=== PATIENT | female | born 1990 | race Two or more races ===

== ENCOUNTER 2018-09-03 11:51 | Observation (INO) | payer OTHER ==
--- NOTE | 2018-09-03 13:08 | PDGENHP ---
History and Physical History and Physical: CARE: [facility] HPI: Patient is a 28 yo G 2 P 1 at 38.2 weeks ega who presents to L&D with complaints of leaking fluid for the last week. She states she has noticed small amts of leaking fluid from time to time over the last week, but not consistent. She denies regular painful contractions, vag bleeding. Baby is active. Her BP while in labor and delivery today was 120-130s/80s - one diastolic over 90. Denies headache, increased edema, visual changes or epigastric pain. EDC: 09/15/18 which is based on LMP: 12/09/18 which is known and consistent with Ultrasound at 8 weeks. 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 -Asthma - inhaler, nebulizer PRN -GBS pos Review of Systems: Constitutional: Denies any fever, chills, or fatigue HEENT: denies any visual changes, difficulty swallowing, hearing loss Cardiovascular: Denies any chest pain, palpitations, leg swelling Respiratory: denies any cough, wheezing, or shortness of breathe GI: Denies any nausea, vomiting, diarrhea, constipation : denies any dysuria, urgency, frequency, vaginal bleeding Musculoskeletal: denies any muscle or bone pain Skin: denies any rashes Neuro: denies any headache, seizures, lightheadedness, dizziness, or loss of consciousness Psychiatric: denies any depression, anxiety, or SI/HI thoughts HISTORY: Previous OB history: 2010 Past medical history: asthma, HSV type II Past surgical history: none Social history: denies tobacco, alcohol and recreational drugs Medications: PNV Allergies (list reaction): NKDA LABS: Rh: O pos ABS: Neg Rubella: Immune HbsAg: NR HIV: NR VDRL: NR 1hr: 94 GC: Neg Chlamydia: Neg Pap: Normal GBS: pos PHYSICAL EXAM: Constitutional: WNL, A&Ox3 Skin: pink, warm and dry HEENT: normocephalic atraumatic, supple Heart: RRR, no murmur Chest: CTA-B Abdomen: Soft, nontender, gravid SVE: ft/50/-3 Extremities: sml edema, negative vicki's sign Neuro: grossly normal Psych: normal affect assessment: Reassuring FHTs, baseline 130s +accels, no decels, moderate variability Contractions: toco quiet Assessment: 1) 28 yo G 2 P 1 with IUP@38.2 weeks ega 2) R/O SROM - amnisure neg 3) GBS pos 4) Cat 1 FHR tracing 5) BPs slightly elevated - PE labs WNL Plan: 1) Will discharge home 2) Reviewed labor precautions 3) Reviewed pre eclampsia precautions 4) Will f/u next Wednesday in office
[2018-09-03 14:41] LABS: PLATELET COUNT 222 10^3/uL (150-400)
== END 2018-09-03 15:11 | disposition home or self-care (01) ==
LOC: FLD 11:51
PROVIDERS: ADMIT Advanced Practice Midwife; ATTEND Advanced Practice Midwife
DX: O26.893 Other specified pregnancy related conditions, third trimester (principal); M54.5 Low back pain; Z3A.38 38 weeks gestation of pregnancy
CPT/HCPCS: G0378 ×2

== ENCOUNTER 2018-09-14 06:00 | Inpatient (IN) | payer OTHER ==
[2018-09-14] MEDS ORDERED: PENICILLIN G POTASSIUM 5,000,000 UNIT in D5W 150 ML IV ONE (14:48)
[2018-09-14] MEDS ORDERED: OLIVE OIL 118 ML BTL MISC PRN (14:48)
[2018-09-14] MEDS ORDERED: EPSOM SALT 454 GM TP PRN (14:48)
[2018-09-14] MEDS ORDERED: OXYTOCIN/RINGERS LACTATE 1,000 ML IV PRN (14:48)
[2018-09-14] MEDS ORDERED: IBUPROFEN 600 MG TAB PO PRN (14:48)
[2018-09-14] MEDS ORDERED: LR 1,000 ML IV PRN (14:48)
[2018-09-14] MEDS ORDERED: LIDOCAINE 1% 300 MG/30 ML SDV SC PRN (14:48)
[2018-09-14] MEDS ORDERED: MISOPROSTOL 200 MCG TAB PR PRN (14:48)
[2018-09-14] MEDS ORDERED: CALCIUM CARBONATE 500 MG CHEWABLE TAB PO PRN (14:52)
--- NOTE | 2018-09-14 15:13 | PDGENHP ---
History and Physical History and Physical: CARE: [facility] HPI: Patient is a 27 yo G 2 P 1 @ 39.6 weeks that presents to L&D with complaints of elevated blood pressure in office. EDC: 09/15/18 which is based on LMP: 12/09/2017 which is known and consistent with Ultrasound at 8 weeks. Her is complicated by: hx of HSV, suppressive therapy initiated at 36 weeks. asthma - uses inhaler rarely, GBS +. Review of Systems: Constitutional: Denies any fever, chills, or fatigue HEENT: denies any visual changes, difficulty swallowing, hearing loss Cardiovascular: Denies any chest pain, palpitations, leg swelling Respiratory: denies any cough, wheezing, or shortness of breathe GI: Denies any nausea, vomiting, diarrhea, constipation : denies any dysuria, urgency, frequency, vaginal bleeding Musculoskeletal: denies any muscle or bone pain Skin: denies any rashes Neuro: denies any headache, seizures, lightheadedness, dizziness, or loss of consciousness Psychiatric: denies any depression, anxiety, or SI/HI thoughts HISTORY: Previous OB history: , 8#8oz male in 2009. Social history: single, lives with son and partner Zachariah Family history: non-contributory Past medical history: asthma, uses inhaler occasionally; hx of HSV and migraine headaches Past surgical history: none Medications: PNV, B vit, loratidine, Probiotics, ventolin PRN Allergies: NKDA LABS: Rh: O+ ABS: Neg Rubella: lmmune HbsAg: NR HIV: NR VDRL: NR 1hr: 94 GC: Neg Chlamydia: Neg Pap: Normal GBS: positive BMI: (prepreg) 27 PHYSICAL EXAM: Constitutional: WN, A&Ox3 HEENT: normocephalic atraumatic, supple, denies headache or scomata Heart: RRR, no murmur Chest: CTA-B Skin: warm, dry, intact Abdomen: Soft, nontender, gravid SVE: 3-4 cm in office this afternoon Extremities: trace edema, negative homans sign Neuro: grossly normal Psych: normal affect assessment: FHT baseline 135, +accels, no decels, moderate variability Contractions: none Assessment: 1) 27 yo G 2 P 1 with IUP@ 39.6 2) elevated blood pressure in office 3) GBS + 4) Cat 1 FHR tracing Plan: 1) Admit to L&D 2) induction of labor 3) PIH labs pending 4) monitor BP closely 5) anticipate
[2018-09-14 15:23] LABS: PLATELET COUNT 266 10^3/uL (150-400)
[2018-09-14] MEDS ORDERED: LR 500 ML IV PRN (15:45)
[2018-09-14] MEDS ORDERED: OXYTOCIN/RINGERS LACTATE 500 ML IV SCH (16:00)
--- NOTE | 2018-09-14 19:35 | OBPROG ---
Labor Progress Note Assessment/Plan: Assessment: Plan: Subjective/Intrapartum Course: 09/14/18 19:32 no signs of labor, blood pressure stable, PIH labs wnl. Objective: 09/14/18 14:35 09/14/18 14:35 Patient ABO/Rh O POSITIVE 09/14/18 14:35 Uric Acid 5.5 mg/dL (2.5-6.8) 09/14/18 14:35 Total Bilirubin 0.3 mg/dL (0.1-1.4) 09/14/18 14:35 Conjugated Bilirubin 0.3 mg/dL (0.0-0.5) 09/14/18 14:35 Unconjugated Bilirubin 0.0 mg/dL (0.0-1.1) 09/14/18 14:35 AST 26 IU/L (14-46) 09/14/18 14:35 ALT 32 IU/L (9-52) 09/14/18 14:35 Lactate Dehydrogenase 570 IU/L (313-618) 09/14/18 14:35 VSS, Pitocin at 3mu - SVE Dilation (cm): 3 Effacement (%): 75 Station: -2 Membranes: Intact - FHR Assessment Chen FHR (bpm): 130 FHR Pattern Variability: Moderate FHR Category: 1 Oxytocin Orders Assessment - Pre-Induction/Augmentation Assessment Presentation: Vertex Gestational Age: 39 week(s) and 6 day(s) Gestational Age Determined By: Ultrasound, Last Menstral Period Estimated Weight: 4922-7713 Membrane Status: Intact - Heart Rate Pattern Chen FHR Category: 1 FHR Pattern Variability: Moderate FHR Accelerations: Present - Sparrow's Score Dilation: 3-4cm Effacement: 60-70 Station: -2 Cervix: Soft Cervix Position: Mid Sparrow Score Total: 8 - Induction/Augmentation Consent Risks/Benefits of Procedure Reviewed/Pt Agrees to Proceed: Yes ICD10 Worksheet Patient Problems: Problems Problem Status Onset Elevated blood pressure complicating in third trimester, antepartum Acute Term Acute
[2018-09-14] MEDS: PENICILLIN G POTASSIUM 2,500,000 UNIT in D5W 150 ML IV SCH (19:55)
[2018-09-14] MEDS: valACYclovir 500 MG TAB PO SCH (20:47)
[2018-09-14] MEDS ORDERED: AMMONIA AROMATIC 1 EACH AMP IH ONE (22:50)
[2018-09-14] MEDS ORDERED: OLIVE OIL 118 ML BTL ONE (22:50)
[2018-09-14] MEDS ORDERED: LIDOCAINE 1% 300 MG/30 ML SDV ONE (22:50)
[2018-09-14] MEDS ORDERED: TERBUTALINE SULFATE 1 MG/ML VIAL ONE (22:50)
[2018-09-14] MEDS ORDERED: OXYTOCIN 10 UNIT/ML VIAL ONE (22:51)
[2018-09-14] MEDS ORDERED: MISOPROSTOL 200 MCG TAB ONE (22:51)
--- NOTE | 2018-09-15 00:29 | OBPROG ---
Labor Progress Note Assessment/Plan: Assessment: Plan: Subjective/Intrapartum Course: 09/14/18 19:32 no signs of labor, blood pressure stable, PIH labs wnl. 09/15/18 00:29 blood pressure stable, no regular contractions, pt feeling tired requesting break at this time. Plan to re-start pitocin at 5 AM. Objective: 09/14/18 14:35 09/14/18 14:35 Patient ABO/Rh O POSITIVE 09/14/18 14:35 Uric Acid 5.5 mg/dL (2.5-6.8) 09/14/18 14:35 Total Bilirubin 0.3 mg/dL (0.1-1.4) 09/14/18 14:35 Conjugated Bilirubin 0.3 mg/dL (0.0-0.5) 09/14/18 14:35 Unconjugated Bilirubin 0.0 mg/dL (0.0-1.1) 09/14/18 14:35 AST 26 IU/L (14-46) 09/14/18 14:35 ALT 32 IU/L (9-52) 09/14/18 14:35 Lactate Dehydrogenase 570 IU/L (313-618) 09/14/18 14:35 - SVE Dilation (cm): 3 Effacement (%): 75 Station: -2 Membranes: Intact - Contraction Pattern Assessment Current Contraction Pattern: Irregular - Physical Exam Estimated Weight: 9341-5455 Oxytocin Orders Assessment - Pre-Induction/Augmentation Assessment Presentation: Vertex Gestational Age: 39 week(s) and 6 day(s) Estimated Weight: 7102-7468 ICD10 Worksheet Patient Problems: Problems Problem Status Onset Elevated blood pressure complicating in third trimester, antepartum Acute Term Acute
[2018-09-15] MEDS: PENICILLIN G POTASSIUM 2,500,000 UNIT in D5W 150 ML IV SCH ×2 (07:45→12:02)
[2018-09-15] MEDS ORDERED: PENICILLIN G POTASSIUM 5,000,000 UNIT in D5W 150 ML IV ONE (07:45)
[2018-09-15] MEDS: valACYclovir 500 MG TAB PO SCH ×2 (08:50→21:35)
[2018-09-15] MEDS ORDERED: ONDANSETRON 4 MG/2 ML VIAL IVP PRN (13:59)
[2018-09-15] MEDS ORDERED: METOCLOPRAMIDE 10 MG/2 ML VIAL IVP PRN (13:59)
[2018-09-15] MEDS ORDERED: NALOXONE HCL 0.4 MG/ML INJ IVP PRN (13:59)
--- NOTE | 2018-09-15 13:59 | PDANEPAE ---
ANE History of Present Illness labor, desires DULCE ANE Past Medical History - Pulmonary History Hx Sleep Apnea: No ANE Review of Systems Review of Systems: ANE Patient History - Allergies Allergies/Adverse Reactions: No Known Allergies Allergy (Unverified 09/03/18 12:19) - Home Medications Home Medications: Amox Tr/K Clav (Augmentin) [Augmentin 500/125 MG TAB (*)] 09/14/18 [Last Taken 09/13/18] Loratadine 09/14/18 [Last Taken 09/13/18] Vit27&Calcium/Iron/FA [] 09/14/18 [Last Taken 09/13/18] - Smoking Hx Smoking Status: Former smoker ANE Labs/Vital Signs - Labs Result Diagrams: 09/14/18 14:35 09/14/18 14:35 - Vital Signs Height: 167.64 cm Weight: 97.976 kg ANE Physical Exam - Airway Neck exam: FROM Mallampati Score: Class 3 Mouth exam: normal dental/mouth exam - Pulmonary Pulmonary: no respiratory distress, no rales or rhonchi - Cardiovascular Cardiovascular: regular rate and rhythym, no murmur, rub, or gallop - ASA Status ASA Status: III ANE Anesthesia Plan Anesthesia Plan: epidural (DULCE desired for labor for presumed of term )
[2018-09-15] MEDS ORDERED: LR 500 ML IV SCH (14:00)
[2018-09-15] MEDS ORDERED: fentaNYL 2MCG/ML/BUP 0.1% RTU 100 ML EP SCH (14:00)
[2018-09-15] MEDS ORDERED: fentaNYL 100 MCG/2 ML INJ ONE (14:35)
--- NOTE | 2018-09-15 15:26 | OBPROG ---
Labor Progress Note Assessment/Plan: Assessment: 28yo with IUP@ 40-0wks IOL GBS+ cat 1 FHR desires BTL Plan: cont pitocin IOL AROM when able anticipate Pain management PRN 09/15/18 0930 Subjective/Intrapartum Course: 09/14/18 19:32 no signs of labor, blood pressure stable, PIH labs wnl. 09/15/18 00:29 blood pressure stable, no regular contractions, pt feeling tired requesting break at this time. Plan to re-start pitocin at 5 AM. 09/15/18 09:30 Pt doing well, denies any pain. she is walking. She reports moderate pain with contractions. She is ambulating in harmon Objective: 09/14/18 14:35 09/14/18 14:35 Patient ABO/Rh O POSITIVE 09/14/18 14:35 Uric Acid 5.5 mg/dL (2.5-6.8) 09/14/18 14:35 Total Bilirubin 0.3 mg/dL (0.1-1.4) 09/14/18 14:35 Conjugated Bilirubin 0.3 mg/dL (0.0-0.5) 09/14/18 14:35 Unconjugated Bilirubin 0.0 mg/dL (0.0-1.1) 09/14/18 14:35 AST 26 IU/L (14-46) 09/14/18 14:35 ALT 32 IU/L (9-52) 09/14/18 14:35 Lactate Dehydrogenase 570 IU/L (313-618) 09/14/18 14:35 - SVE Membranes: Intact - Contraction Pattern Assessment Current Contraction Pattern: Irregular - FHR Assessment Chen FHR (bpm): 135 FHR Pattern Variability: Moderate FHR Category: 1 - Physical Exam Estimated Weight: 4757-3006 Oxytocin Orders Assessment - Pre-Induction/Augmentation Assessment Presentation: Vertex Gestational Age: 39 week(s) and 6 day(s) Estimated Weight: 4934-7376 ICD10 Worksheet Patient Problems: Problems Problem Status Onset Elevated blood pressure complicating in third trimester, antepartum Acute Term Acute
[2018-09-15] MEDS ORDERED: fentaNYL 100 MCG/2 ML INJ IVP PRN (15:28)
--- NOTE | 2018-09-15 15:28 | OBPROG ---
Labor Progress Note Assessment/Plan: Assessment: 28yo with IUP@ 40-0wks IOL GBS+ cat 2 FHR desires BTL AROM (attempt) Plan: cont pitocin IOL Pain management PRN reassess 2hr/PRN anticipate 09/15/18 12:25 09/15/18 15:28 Subjective/Intrapartum Course: 09/14/18 19:32 no signs of labor, blood pressure stable, PIH labs wnl. 09/15/18 00:29 blood pressure stable, no regular contractions, pt feeling tired requesting break at this time. Plan to re-start pitocin at 5 AM. 09/15/18 09:30 Pt doing well, denies any pain. she is walking. She reports moderate pain with contractions. She is ambulating in harmon Objective: 09/14/18 14:35 09/14/18 14:35 Patient ABO/Rh O POSITIVE 09/14/18 14:35 Uric Acid 5.5 mg/dL (2.5-6.8) 09/14/18 14:35 Total Bilirubin 0.3 mg/dL (0.1-1.4) 09/14/18 14:35 Conjugated Bilirubin 0.3 mg/dL (0.0-0.5) 09/14/18 14:35 Unconjugated Bilirubin 0.0 mg/dL (0.0-1.1) 09/14/18 14:35 AST 26 IU/L (14-46) 09/14/18 14:35 ALT 32 IU/L (9-52) 09/14/18 14:35 Lactate Dehydrogenase 570 IU/L (313-618) 09/14/18 14:35 - SVE Dilation (cm): 3 Effacement (%): 50 Station: -2 Membranes: AROM (no fluid) - Contraction Pattern Assessment Current Contraction Pattern: Irregular - FHR Assessment Chen FHR (bpm): 135 FHR Pattern Variability: Moderate FHR Category: 2 - Procedures Non-surgical Procedures: Amniotomy - Physical Exam Estimated Weight: 6126-9400 Oxytocin Orders Assessment - Pre-Induction/Augmentation Assessment Presentation: Vertex Gestational Age: 39 week(s) and 6 day(s) Estimated Weight: 4492-3545 ICD10 Worksheet Patient Problems: Problems Problem Status Onset Elevated blood pressure complicating in third trimester, antepartum Acute Term Acute
--- NOTE | 2018-09-15 15:30 | OBDEL ---
Info Type: Vaginal Presentation at Delivery: Vertex L&D Analgesia/Anesthesia Type: None GBS+: Yes (treated with penicillin) Intrapartum Medications: Generic Name Dose Route Start Last Admin Trade Name Freq PRN Reason Stop Dose Admin Calcium Carbonate 500 mg 09/14/18 14:52 09/14/18 15:09 Tums PO 03/13/19 14:51 500 mg TID PRN Administration Indigestion Oxytocin/Lactated Ringer's 500 mls @ 0 mls/hr 09/14/18 16:00 09/15/18 05:44 Pitocin 30 Units/Lr (Premix) IV 03/13/19 15:59 500 mls CONT JUSTIN Administration Protocol Per Protocol Penicillin G Potassium 2,500, 155 mls @ 155 mls/hr 09/15/18 11:30 09/15/18 12 :02 000 unit/ Dextrose IV 10/15/18 11:29 155 mls Q4H JUSTIN Administration Protocol Valacyclovir HCl 500 mg 09/14/18 21:00 09/15/18 08:50 Valtrex PO 10/14/18 20:59 500 mg Q12HRS JUSTIN Administration Discontinued Medications Generic Name Dose Route Start Last Admin Trade Name Mary PRN Reason Stop Dose Admin Lactated Ringer's 1,000 mls @ 0 mls/hr 09/14/18 14:48 09/15/18 06:44 Lr IV 09/15/18 14:47 1,000 mls PRN PRN Administration SEE PROTOCOL CONDITIONS Protocol Per Protocol Penicillin G Potassium 5,000, 160 mls @ 160 mls/hr 09/14/18 14:48 09/14/18 16 :31 000 unit/ Dextrose IV 09/14/18 15:47 Not Given ONCE ONE Protocol Penicillin G Potassium 2,500, 155 mls @ 155 mls/hr 09/14/18 18:50 09/15/18 07 :45 000 unit/ Dextrose IV 10/14/18 18:49 Not Given Q4H JUSTIN Protocol Penicillin G Potassium 5,000, 160 mls @ 160 mls/hr 09/15/18 07:45 09/15/18 07 :46 000 unit/ Dextrose IV 09/15/18 08:44 160 mls ONCE ONE Administration Protocol - Hospital Course Intrapartum: 09/14/18 19:32 no signs of labor, blood pressure stable, PIH labs wnl. 09/15/18 00:29 blood pressure stable, no regular contractions, pt feeling tired requesting break at this time. Plan to re-start pitocin at 5 AM. 09/15/18 09:30 Pt doing well, denies any pain. she is walking. She reports moderate pain with contractions. She is ambulating in harmon Vaginal Delivery - Delivery Provider Delivery Physician/CNM: Reanna Macias - Labor and Delivery Onset of Contractions Date: 09/15/18 Onset of Contractions Time: 13:16 Onset of Contractions Type: Induced Rupture of Membranes Date: 09/15/18 Rupture of Membranes Time: 12:13 Rupture of Membranes Type: Artificial Amniotic Fluid Color: Clear Dilation Complete Date: 09/15/18 Dilation Complete Time: 14:10 Placenta Delivery Date: 09/15/18 Placenta Delivery Time: 15:05 Total Hours of Labor: 1 Non-surgical Procedures: Amniotomy Data INGA: 09/15/18 Gestational Age: 40 week(s) and 0 day(s) Chen Delivery Date: 09/15/18 Delivery Time: 14:17 Sex of : Male Weight (gm): 2285 g Score (1 Min): 8 Score (5 Min): 9 ICD10 Worksheet Patient Problems: Problems Problem Status Onset Elevated blood pressure complicating in third trimester, antepartum Acute Retained placenta Acute Term Acute - ICD10 Problem Qualifiers (1) Retained placenta
[2018-09-15] MEDS ORDERED: CEFAZOLIN 2 GM/DEXTROSE/100 ML BAG IV ONE (15:58)
[2018-09-15] MEDS ORDERED: ceFAZolin 2 GM/DEXTROSE 100 ML IV ONE (16:15)
[2018-09-15] MEDS ORDERED: DOCUSATE SODIUM 100 MG CAP PO PRN (18:22)
[2018-09-15] MEDS ORDERED: SIMETHICONE 80 MG TAB CHEW PO PRN (18:22)
[2018-09-15] MEDS ORDERED: HYDROCORTISONE 0.5% CREAM TP PRN (18:22)
--- NOTE | 2018-09-15 19:17 | SOAPPROG ---
SOAP Progress Note Assessment/Plan: post placenta was adherent to uterus cord evulsed and after manual removal attempt x2 - Candice Kaiser was notified to assist at BS. Candice Kaiser was able to manually remove part of placenta and used curettage to ensure no RPOC. BSUS done- which confirmed thin stripe. bleeding normal/pt stable and tolerated procedure well. Objective: Vital Signs Temp Pulse Resp BP Pulse Ox 36.3 C 134 H 16 117/75 94 09/15/18 18:02 09/15/18 18:02 09/15/18 18:02 09/15/18 18:02 09/15/18 18:02 Laboratory Results 09/14/18 14:35 09/14/18 14:35 09/14/18 09/15/18 09/16/18 05:59 05:59 05:59 Intake Total 3000 Output Total 800 Balance 2200 ICD10 Worksheet Patient Problems: Problems Problem Status Onset Elevated blood pressure complicating in third trimester, antepartum Acute Retained placenta Acute Term Acute - ICD10 Problem Qualifiers (1) Retained placenta
[2018-09-15] MEDS: IBUPROFEN 600 MG TAB PO PRN (21:34)
[2018-09-16] MEDS ORDERED: LR 1,000 ML IV SCH
[2018-09-16] MEDS: PENICILLIN G POTASSIUM 2,500,000 UNIT in D5W 150 ML IV SCH (02:10)
[2018-09-16] MEDS: IBUPROFEN 600 MG TAB PO PRN ×3 (04:08→22:19)
--- NOTE | 2018-09-16 07:57 | PDHPUP ---
History & Physical Update H&P update statement: This history and physical update is based on an assessment of the patient which was completed after admission or registration (within 24 hours), but prior to the surgery/procedure. Pt had and with MALU Macias, yesterday at 1417, c/b retained placenta, with bedside curettage performed by Dr. Kaiser. Is still very much desiring permanent sterilization. Reviewed morbid scenario - partner and both children get killed in an accident in a year. She is only 28, she may want to have another family in her early 30s. She very clearly states that despite hearing this - she never wants to be again, no matter the circumstances. She is fully aware that removing her tubes is not a reversible procedure. She does desire tubal removal to decrease the risk of ovarian cancer. No known family hx of ovarian cancer. Is working on . Ambulating and voiding without difficulty. Hungry as NPO since midnight. PMH: HSV - has been on suppressive acyclovir past month. asthma - has not used an inhaler since early migraines PSH: none Meds: acyclovir, was on PCN in labor for GBS+, pp - ibuprofen at 0400 this morning - only dose this admission. All: NKDA Soc: partner and FOC here with her, though she does not classify it as a keno terminal operator relationship. Famhx: no known hx of ovarian cancer O: 09/16/18 02:50 09/14/18 14:35 Patient ABO/Rh O POSITIVE 09/14/18 14:35 Uric Acid 5.5 mg/dL (2.5-6.8) 09/14/18 14:35 Total Bilirubin 0.3 mg/dL (0.1-1.4) 09/14/18 14:35 Conjugated Bilirubin 0.3 mg/dL (0.0-0.5) 09/14/18 14:35 Unconjugated Bilirubin 0.0 mg/dL (0.0-1.1) 09/14/18 14:35 AST 26 IU/L (14-46) 09/14/18 14:35 ALT 32 IU/L (9-52) 09/14/18 14:35 Lactate Dehydrogenase 570 IU/L (313-618) 09/14/18 14:35 Temp Pulse Resp BP Pulse Ox 36.6 C 104 H 16 101/66 94 09/15/18 21:00 09/15/18 21:00 09/15/18 21:00 09/15/18 21:00 09/15/18 21:00 Temp Pulse Resp BP Pulse Ox 36.7 C 100 18 120/75 95 09/16/18 08:28 09/16/18 08:28 09/16/18 08:28 09/16/18 08:28 09/16/18 08:28 gen -pleasant, NAD abd - soft, obese, fundus firm u-1 ext - traced edema, no calf tenderness A/P:28 GP2 PPD#1 s/p - in setting of IOL for elevated BPs at 39w6d, delivered at 40 wk, unmedicated - desires sterilization during this hospitalization 1) Anemia at 27.1 - currently asymptomatic. 2) Written informed consent obtained - reviewed regret factors: < age 29 (pt is 28), not in a residential monogamous relationship (pt does not classify this relationship as a keno terminal operator monogmous relationship), no children. She is aware that she has one factor for increased risk of regret. 3) Discussed my goal is to perform sterilization procedure, with secondary goal of onco reduction with tubal removal. Pt's BMI is 34.9 - may be technically challenging to remove both tubes in entirety - discussed my goal would be to remove both tubes, but if unable to remove distal portion, would at least attempt to remove a segment of each tube. Jaylene Fox MD, F[facility]OG [facility] H&P update: no change in patient's condition since H&P completed, changes noted (see above)
--- NOTE | 2018-09-16 08:42 | PDANEPAE ---
ANE History of Present Illness desires sterilization ANE Past Medical History - Cardiovascular History Hx Hypertension: No Hx Arrhythmias: No Hx Chest Pain: No Hx Coronary Artery / Peripheral Vascular Disease: No Hx CHF / Valvular Disease: No Hx Palpitations: No - Pulmonary History Hx COPD: No Hx Asthma/Reactive Airway Disease: Yes Hx Recent Upper Respiratory Infection: No Hx Oxygen in Use at Home: No Hx Sleep Apnea: No - Neurologic History Hx Cerebrovascular Accident: No Hx Seizures: No Hx Dementia: No - Endocrine History Hx Diabetes: No Hypothyroid: No Hyperthyroid: No Obesity: mild - Renal History Hx Renal Disorders: No - Liver History Hx Hepatic Disorders: No - Neurological & Psychiatric Hx Hx Neurological and Psychiatric Disorders: No - Cancer History Hx Cancer: No - Congenital Disorder History Hx Congenital Disorders: No - GI History GERD: no Hx Gastrointestinal Disorders: No ANE Review of Systems Review of systems is: negative Review of Systems: ANE Patient History - Allergies Allergies/Adverse Reactions: No Known Allergies Allergy (Unverified 09/03/18 12:19) - Home Medications Home medications: home medication list seen and reviewed Home Medications: Amox Tr/K Clav (Augmentin) [Augmentin 500/125 MG TAB (*)] 09/14/18 [Last Taken 09/13/18] Loratadine 09/14/18 [Last Taken 09/13/18] Vit27&Calcium/Iron/FA [] 09/14/18 [Last Taken 09/13/18] - Anes Hx Anes Hx: no prior problems - Smoking Hx Smoking Status: Former smoker - Alcohol Use Alcohol Use: None - Family Anes Hx Family Anes Hx: none ANE Labs/Vital Signs - Labs Result Diagrams: 09/16/18 02:50 09/14/18 14:35 - Vital Signs Blood Pressure: 120/75 Heart Rate: 100 Respiratory Rate: 18 O2 Sat (%): 95 Height: 167.64 cm Weight: 97.976 kg ANE Physical Exam - Airway Neck exam: FROM Mallampati Score: Class 2 Mouth exam: normal dental/mouth exam - Pulmonary Pulmonary: no respiratory distress, clear to auscultation - Cardiovascular Cardiovascular: regular rate and rhythym, no murmur, rub, or gallop - ASA Status ASA Status: II ANE Anesthesia Plan Anesthesia Plan: general endotracheal anesthesia, spinal
[2018-09-16] MEDS ORDERED: morphINE PF 5 MG/10 ML INJ ONE (08:52)
--- NOTE | 2018-09-16 09:20 | POSTANESTH ---
Post Anesthetic Evaluation Cardiovascular Status: Normal, Stable Respiratory Status: Normal, Stable Level of Consciousness/Mental Status: Can Participate in Eval Pain Control: Adequate, Prn Tx Ordered Nausea/Vomiting Control: Adequate, Prn Tx Ordered Complications Possibly Related to Anesthesia: None Noted
[2018-09-16] MEDS ORDERED: LIDO/EPI 2% **for epidural** 20 ML SDV ONE (09:25)
[2018-09-16] MEDS ORDERED: PHENYLEPHRINE HCL 100 MCG/ML SYR ONE (09:31)
[2018-09-16] MEDS ORDERED: ONDANSETRON 4 MG/2 ML VIAL IVP PRN ×2 (09:35→09:38)
[2018-09-16] MEDS ORDERED: NALOXONE HCL 0.4 MG/ML INJ IVP PRN (09:35)
[2018-09-16] MEDS ORDERED: MEPERIDINE 25 MG/0.5 ML AMP IVP PRN (09:38)
[2018-09-16] MEDS ORDERED: fentaNYL 100 MCG/2 ML INJ IVP PRN (09:38)
[2018-09-16] MEDS ORDERED: PHENYLEPHRINE HCL 100 MCG/ML SYR IVP PRN (09:38)
[2018-09-16] MEDS ORDERED: ePHEDrine SULFATE 25 MG/5 ML SYR ONE (09:51)
--- NOTE | 2018-09-16 10:23 | POSTOPPROG ---
Post Op Note Date of Operation: 09/16/18 Surgeon: Jaylene Fox Tape Duplicator: Tia Lomas, RN Anesthesiologist: Alec Freeman MD Anesthesia: Spinal (with Duramorph) Pre-op Diagnosis: undesired fertility Post-op Diagnosis: same Indication: 28 s/p < 24 hr ago, desires permanent sterilization Procedure: tubal ligation through mini-laparotomy Findings: Normal appearing uterine fundus, bilateral tubes and ovaries Inf/Abcess present in the surg proc area at time of surgery?: No EBL: Minimal Total fluids administered: 800 ml LR Complications: none Specimen(s): bilateral Fallopian tubes
--- NOTE | 2018-09-16 11:38 | GOP ---
[f rep st] OPERATIVE REPORT DATE OF OPERATION: 09/16/2018 SURGEON: Jaylene Fox MD JUNIOR PHP DEVELOPER: Tia Lomas RN. ANESTHESIA: Spinal with Duramorph. ANESTHESIOLOGIST: Alec Freeman MD. PREOPERATIVE DIAGNOSIS: Undesired fertility. POSTOPERATIVE DIAGNOSIS: Undesired fertility. PROCEDURE PERFORMED: tubal ligation through a mini-laparotomy. FINDINGS: Normal-appearing uterine fundus, bilateral tubes and ovaries. SPECIMENS: Bilateral fallopian tubes. ESTIMATED BLOOD LOSS: 20 mL. INDICATIONS: 28-year-old 2, para 2 female status post spontaneous vaginal delivery at term less than 24 hours ago, who desires permanent sterilization. She was counseled during the by Dr. Pruett and maintains her desire to have permanent sterilization. She has received her care with the [facility]. Her hematocrit this morning was 27.1. DESCRIPTION OF PROCEDURE: Written informed consent was obtained from the patient as the history and physical update was done this morning prior to the procedure. The patient was then taken to the operating room where Dr. Freeman performed a spinal anesthetic. She was then placed in the dorsal supine position. Her abdomen was sterilely prepared and draped in a standard fashion. No antibiotics were administered. A time-out was performed. 10 mL of 2% lidocaine with epinephrine was infiltrated into the infraumbilical area. An incision was made and taken down sharply to the fascia. The fascia was grasped and elevated with Herson clamps. The fascia was incised. The peritoneum was identified, elevated and entered sharply. Combination of retractors was used to provide adequate retraction using mostly a Ad retractor and an S retractor. With palpation, the top of the fundus was able to be palpated and the right tube was able to be brought to the incision. The fimbriated end of the tube was grasped with a ring forceps and the tube was elevated. The vasculature in the mesosalpinx was identified and tied off with 3-0 Vicryl. The tube just distal to the cornua was doubly suture ligated with 0.0 Vicryl. The entire tube was then excised using cautery across the tube and along the mesosalpinx. The operative site appeared hemostatic. Attention was then turned to the left side and the procedure was performed in a very similar fashion on the left side. All instruments were removed and the fascia was closed with 0 Vicryl in a running fashion. The Tay's fascia was closed with 3-0 Vicryl in a running fashion. The skin was closed in a running subcuticular fashion with 4-0 Monocryl. It was covered with Steri-Strips. Sponge, lap, and needle counts were correct x2. The patient was then transferred to the PACU in stable condition. TOTAL FLUIDS ADMINISTERED: 800 mL of lactated Ringer's. URINE OUTPUT: No catheterization was performed as she voided immediately prior to the procedure. COMPLICATIONS: None. /[id number]/MODL MTDD
[2018-09-16] MEDS: valACYclovir 500 MG TAB PO SCH ×2 (13:57→22:19)
[2018-09-16] MEDS: ACETAMINOPHEN 325 MG TAB PO PRN ×2 (14:03→22:19)
--- NOTE | 2018-09-16 14:28 | OBPP ---
Progress Note Assessment/Plan: Assessment: 28 y/o p2 s/p ppd #1 pp tubal ligation this am per Dr Fox Anemia Plan: Routine pp care Iron bid Plan d/c tomorrow 09/16/18 15:47 09/16/18 15:51 Subjective/ Course: 09/16/18 15:48 Doing well, with support. Pain well controlled with oral pain pills, tolerating reg diet, activity. Vag bleeding wnl, voiding fine. Objective: 09/16/18 02:50 09/14/18 14:35 Patient ABO/Rh O POSITIVE 09/14/18 14:35 Uric Acid 5.5 mg/dL (2.5-6.8) 09/14/18 14:35 Total Bilirubin 0.3 mg/dL (0.1-1.4) 09/14/18 14:35 Conjugated Bilirubin 0.3 mg/dL (0.0-0.5) 09/14/18 14:35 Unconjugated Bilirubin 0.0 mg/dL (0.0-1.1) 09/14/18 14:35 AST 26 IU/L (14-46) 09/14/18 14:35 ALT 32 IU/L (9-52) 09/14/18 14:35 Lactate Dehydrogenase 570 IU/L (313-618) 09/14/18 14:35 Temp Pulse Resp BP Pulse Ox 36.7 C 95 16 119/70 96 09/16/18 13:30 09/16/18 13:30 09/16/18 13:30 09/16/18 13:30 09/16/18 13:30 Uterine Position/Fundal Height: At Umbilicus Uterine Tone: Firm Physical Exam - Physical Exam EENT: normal ENT inspection Neck: full range of motion Respiratory: normal breath sounds Cardiac/Chest: regular rate, rhythm Extremities: normal range of motion Skin: normal color, warm/dry Neuro/Psych: alert, normal mood/affect, oriented x 3
[2018-09-16] MEDS: FERROUS SULFATE 325 MG TAB PO SCH (22:19)
[2018-09-17] MEDS: ACETAMINOPHEN 325 MG TAB PO PRN ×3 (04:38→16:35)
[2018-09-17] MEDS: IBUPROFEN 600 MG TAB PO PRN ×3 (04:38→16:36)
[2018-09-17 10:23] VITALS: BP 117/69
[2018-09-17] MEDS: valACYclovir 500 MG TAB PO SCH (10:59)
[2018-09-17] MEDS: FERROUS SULFATE 325 MG TAB PO SCH (10:59)
--- NOTE | 2018-09-17 11:36 | OBGCSDC ---
General Delivery Information - General Info : 2 Para: 2 Abortions: 0 Type: Vaginal L&D Analgesia/Anesthesia Type: Spinal Admission Date: 09/14/18 Labs: Patient ABO/Rh O POSITIVE 09/14/18 14:35 Hct 27.1 % (38.0-47.0) L 09/16/18 02:50 - Hospital Course Intrapartum: 09/14/18 19:32 no signs of labor, blood pressure stable, PIH labs wnl. 09/15/18 00:29 blood pressure stable, no regular contractions, pt feeling tired requesting break at this time. Plan to re-start pitocin at 5 AM. 09/15/18 09:30 Pt doing well, denies any pain. she is walking. She reports moderate pain with contractions. She is ambulating in harmon : 09/16/18 15:48 Doing well, with support. Pain well controlled with oral pain pills, tolerating reg diet, activity. Vag bleeding wnl, voiding fine. 09/17/18 11:33 S) Pt doing well, reports min pain and bleeding. she is ambulating and voiding without difficulty. She is . She desires discharge home today. O) VSS, afebrile constitutional: WNWF, A&Ox3 HEENT: normocephalic, atraumatic, supple Heart: RRR, No murmur Chest: CTA-B Abdomen: Soft, nontender Uterus: Firm at U-2 Lochia: Minimal rubra Perineum: Intact, healing well Extremities: Trace edema, and negative Lesly's sign Neuro: Grossly normal A) 28 year-old P2 S/P , bilateral tubal ligation PPD#2 anemia P) Discharge home today Continue Daily iron supplement Pelvic rest x6wks Discussed danger signs (infection, preeclampsia, depression, heavy bleeding, etc) RTO in 2/4/6 weeks Vaginal - Delivery Provider Delivery Physician/CNM: Reanna Macias - Diagnosis Labor: Induced Rupture of Membranes Type: Artificial Amniotic Fluid Color: Clear - Procedures Non-surgical Procedures: Amniotomy - Delivery Providers Surgeon: Jaylene Fox - Delivery Non-surgical Procedures: Amniotomy [place] Data INGA: 09/15/18 Gestational Age: 40 week(s) and 2 day(s) Chen Delivery Date: 09/15/18 Delivery Time: 14:17 Sex of : Male Weight (gm): 2285 g Score (1 Min): 8 Score (5 Min): 9
--- NOTE | 2018-09-17 15:31 | OBPP ---
Progress Note Assessment/Plan: Assessment: 28 y/o POD #1 s/p PP B salpingectomy Plan: I feel the sl erythema is from manipulation in surgery and dependent portion of her pannus. I instructed her partner to observe the area and for them to call if she develops additional sx's of infection or erythema. She is d/c on Ibuprofen and Tylenol and instructed to follow-up for an incision check this week. 09/17/18 15:29 Subjective/ Course: 09/16/18 15:48 Doing well, with support. Pain well controlled with oral pain pills, tolerating reg diet, activity. Vag bleeding wnl, voiding fine. 09/17/18 11:33 S) Pt doing well, reports min pain and bleeding. she is ambulating and voiding without difficulty. She is . She desires discharge home today. O) VSS, afebrile constitutional: WNWF, A&Ox3 HEENT: normocephalic, atraumatic, supple Heart: RRR, No murmur Chest: CTA-B Abdomen: Soft, nontender Uterus: Firm at U-2 Lochia: Minimal rubra Perineum: Intact, healing well Extremities: Trace edema, and negative Lesly's sign Neuro: Grossly normal A) 28 year-old P2 S/P , bilateral tubal ligation PPD#2 anemia P) Discharge home today Continue Daily iron supplement Pelvic rest x6wks Discussed danger signs (infection, preeclampsia, depression, heavy bleeding, etc) RTO in 2/4/6 weeks 09/17/18 15:26 I came to examine patient's incision today s/p PPB salpingectomy. She says it is sore but not terribly painful and is only taking Ibuprofen and Tylenol She is ambulating and showered, baby is fine and they are ready to d.c home. Objective: 09/16/18 02:50 09/14/18 14:35 Patient ABO/Rh O POSITIVE 09/14/18 14:35 Uric Acid 5.5 mg/dL (2.5-6.8) 09/14/18 14:35 Total Bilirubin 0.3 mg/dL (0.1-1.4) 09/14/18 14:35 Conjugated Bilirubin 0.3 mg/dL (0.0-0.5) 09/14/18 14:35 Unconjugated Bilirubin 0.0 mg/dL (0.0-1.1) 09/14/18 14:35 AST 26 IU/L (14-46) 09/14/18 14:35 ALT 32 IU/L (9-52) 09/14/18 14:35 Lactate Dehydrogenase 570 IU/L (313-618) 09/14/18 14:35 Temp Pulse Resp BP Pulse Ox 36.6 C 100 18 117/69 95 09/17/18 10:22 09/17/18 10:22 09/17/18 10:22 09/17/18 10:22 09/17/18 10:22 Uterine Position/Fundal Height: Umbilicus -2 Uterine Tone: Firm Physical Exam - Physical Exam Abdomen: incision (c/d/i, slight erythems in dependent portion of abdomen inferior to incision, steristrips intact)
[2018-09-17] MEDS ORDERED: oxyCODONE IR 5 MG TAB PO PRN (16:09)
--- NOTE | 2018-09-17 21:10 | PDPAINCON ---
Pain Management Consultation Patient referred by : Dominique - Subjective Pain at rest (/10): 0 Pain with activity (/10): 2 Pain is: under control - Objective Technique: spinal opioid Vital signs: stable - Assessment/Plan Assessment/Plan: pain well-controlled, continue current mgmt (d/c home)
== END 2018-09-17 17:15 | disposition home or self-care (01) | DRG 797 ==
LOC: FLD 14:20 → FOB 09-15 17:30
PROVIDERS: ADMIT Advanced Practice Midwife; ATTEND Advanced Practice Midwife
PROC: 3E033VJ Introduction of Other Hormone into Peripheral Vein, Percutaneous Approach (ICD-10-PCS; 2018-09-14)
PROC: 10907ZC Drainage of Amniotic Fluid, Therapeutic from Products of Conception, Via Natural or Artificial Opening (ICD-10-PCS; principal; 2018-09-15)
PROC: 10D17Z9 Manual Extraction of Products of Conception, Retained, Via Natural or Artificial Opening (ICD-10-PCS; principal; 2018-09-15)
PROC: 10D17ZZ Extraction of Products of Conception, Retained, Via Natural or Artificial Opening (ICD-10-PCS; principal; 2018-09-15)
PROC: 10E0XZZ Delivery of Products of Conception, External Approach (ICD-10-PCS; principal; 2018-09-15)
PROC: 0UB70ZZ Excision of Bilateral Fallopian Tubes, Open Approach (ICD-10-PCS; 2018-09-16)
DX: O98.32 Other infections with a predominantly sexual mode of transmission complicating childbirth (principal); A60.04 Herpesviral vulvovaginitis; O72.0 Third-stage hemorrhage; O99.824 Streptococcus B carrier state complicating childbirth; O99.03 Anemia complicating the puerperium; Z30.2 Encounter for sterilization; Z37.0 Single live birth; Z3A.39 39 weeks gestation of pregnancy
CPT/HCPCS: J0690; J2274; J2370; J2540; J2590; J3010; J3105